=== PATIENT | female | born 1950 | race Caucasian/White ===

== ENCOUNTER → 2017-07-07 | Outpatient (CLI) | payer BC ==
[~2017-07-07] MED LIST: ACET-1311 PO; ATOR-22 PO; CLX20 PO; CMD5 PO; DOCU-94 PO; FURO-85 PO; LISI-461 PO; MULT-506 PO; XNX25 PO
--- NOTE | 2017-07-08 19:50 | SPLIT NIGHT TECHNICIAN REPORT ---
[facility] Split Night Polysomnogram - Digital Manager Report Study date: 07/07/2017 Referring Physician: Keith Austin Name: THANH FELIZ Digital Manager: Tierney Gupta, PSGT. Date of : 1950 Height: 66 years, Height 5' 5" Sex: Female Weight: 231 lbs Age: 66 BMI: Medications: 38.44 Prednisone 20 mg, Lisinopril 10 mg, Celexa 40 mg, Lasix 20 mg, Tylenol 650 mg, Aspirin 81 mg, Lipitor 20 mg. Patient History 69 yr. old female presents to the sleep lab for sob and fatigue. She states that she uses 2 liters of oxygen at night and two hours prior to starting her job in the morning. Her medical history is as follows: Pulmonary Hypertension, Amiodarone Pulmonary Toxicity, Nocturnal Hypoxia, Chronic Respiratory Failure with Hypoxia, SOB. Aortic Valve Replacement with Cabg with Prosthetic Valve. Test will be started on room air. Parameters Monitored NPSG: E1-M2, E2-M1, Fp1-M2, Fp2-M1, F3-M2, F4-M2, F4-M1, C3-M2, C4-M2, C4-M1, O1-M2, O2-M2, O2-M1, T3-M2, T4-M1, P3-M2, P4-M1, CHIN1, CHIN2, HR, EKG, Legs, PFLOW, SNOR, FLOW, CFLOW, Tidal Volume, THOR, ABDO, SpO2, PLTH, CPRESS, ETCO2 Wave, ETCO2, pH SLEEP SUMMARY DATA DIAGNOSTIC TREATMENT Lights Out: 11:02:05 PM NONE Lights On: 2:04:05 AM 5:41:05 AM Total Recording Time (TRT): 181.7 min. 209.3 min. Total Sleep Time (TST): 146.5 min. 173.0 min. NREM Time: 146.5 min. 80.5 min. REM Time: 0.0 min. 92.5 min. Sleep Period Time (SPT): 149.0 min. 178.5 min. Sleep Efficiency (SE): 81 % 83 % Sleep Latency: 27.5 min. NONE min. Arousal Index: 33.6 10.8 PAP Treatment Levels: 4, 6, 7, 8, 9 * Optimal Pressure(s) SLEEP STAGING DATA DIAGNOSTIC TREATMENT Duration (min) TST % Duration (min) TST % Stage Wake: 35.2 min. -- 35.8 min. -- WASO: 8.0 min. -- 5.5 min. -- NREM: 146.5 min. 100 % 80.5 min. 47 % Stage N1: 16.0 min. 11 % 9.0 min. 5 % Stage N2: 130.5 min. 89 % 65.0 min. 38 % Stage N3: 0.0 min. 0 % 6.5 min. 4 % REM: 0.0 min. 0 % 92.5 min. 53 % POSITIONAL DATA Event Count Index Event Count Index Supine: N/A N/A N/A N/A Supine NREM: N/A N/A N/A N/A Supine REM: N/A N/A N/A N/A Non-Supine: 161 65.5 22 7.6 Non-Supine NREM: 161 65.5 2 1.5 Non-Supine REM: N/A N/A 20 13.0 AROUSAL SUMMARY DATA: Event Count Index Event Count Index Apnea Arousals: 2 4.9 0 0.3 Hypopnea Arousals: 31 12.7 5 1.7 Snore Arousals: 33 13.5 7 2.4 PLM Arousals: 0 0.0 0 0.0 Non-Specific Arousals: 18 7.4 17 5.9 Total Arousals: 82 33.6 31 10.8 MYOCLONUS (PLM) Event Count Index Event Count Index PLM: 0 0.0 0 0.0 PLM AROUSAL: 0 0.0 0 0.0 PLM W/O AROUSAL 0 0.0 0 0.0 PLM W/RESP EVENT 0 0.0 0 0.0 MYOCLONUS (PLM) Event Count Index Event Count Index LM: 1 10.2 21 7.3 LM AROUSAL: 1 0.4 2 0.7 LM W/O AROUSAL LM W/RESP EVENT LM NON SPECIFIC 19 7.8 18 6.2 HEART RATE DATA DIAGNOSTIC TREATMENT Sleep (bpm): 81 73 REM (bpm): N/A 89 NREM (bpm): 86 89 Tachycardia Count: 0 0 Tachycardia Duration: 0.00 0 Bradycardia Count: 0 0 Bradycardia Duration: 0.00 0 DIAGNOSTIC PORTION TREATMENT PORTION RESPIRATORY DATA Event Count Index Event Count Index AHI: -- 65.5 -- 7.6 RDI: -- 65.9 -- 8 Obstructive Apnea: 12 4.9 1 0.3 Central Apnea: 0 0.0 0 0.0 Mixed Apnea: 0 0.0 0 0.0 Hypopnea: 148 60.6 21 7.3 RERA: 1 0.4 0 0.0 Total Apneas: 12 4.9 1 0.3 RESPIRATORY DATA REM NREM SLEEP REM NREM SLEEP Supine Position: Obstructive Apneas: N/A N/A N/A N/A N/A N/A Central Apneas: N/A N/A N/A N/A N/A N/A Mixed Apneas: N/A N/A N/A N/A N/A N/A Hypopneas: N/A N/A N/A N/A N/A N/A RERA N/A N/A N/A N/A N/A N/A Total Supine Events: N/A N/A N/A N/A N/A N/A Supine AHI: N/A N/A N/A N/A N/A N/A Supine RDI: N/A N/A N/A N/A N/A N/A REM NREM SLEEP REM NREM SLEEP Non-Supine Position: Obstructive Apneas: N/A 12 12 0 1 1 Central Apneas: N/A 0 0 0 0 0 Mixed Apneas: N/A 0 0 0 0 0 Hypopneas: N/A 148 148 20 1 21 RERA N/A 1 1 0 0 0 Total Supine Events: N/A 161 161 20 2 22 Supine AHI: N/A 65.5 65.5 13.0 1.5 7.6 Supine RDI: N/A 65.9 65.9 13.0 1.5 7.6 OXYGEN DESTAURATION DATA: Event Count Index Event Count Index REM Desaturations: N/A N/A 28 18.2 NREM Desaturations: 175 71.7 6 4.5 SNORE DATA DIAGNOSTIC TREATMENT Snore Time: 38.2 2:42:35 AM Snore TST%: 16 13 Snore Arousal Count: 33 7 Snore Arousal Index: 13.5 2.4 Desaturation Event Summary: Minimum %SpO2 Event Count Mean/Min/Max Duration(sec.) Desaturation Index % Time In Bed > 90 69 28.5 / 11.3 / 59.3 123.1 8.7 86 - 90 193 23.4 / 7.5 / 56.0 42.6 70.2 81 - 85 20 20.9 / 7.5 / 41.8 16.6 18.7 76 - 80 0 N/A 0.0 2.5 71 - 75 0 N/A 0.0 0.0 66 - 70 0 N/A 0.0 0.0 61 - 65 0 N/A 0.0 0.0 56 - 60 0 N/A 0.0 0.0 51 - 55 0 N/A 0.0 0.0 < 50 0 N/A 0.0 0.0 OXYGEN SATURATION DATA DIAGNOSTIC TREATMENT SpO2 Mean Sleep: 86 % 89 % SpO2 Mean REM: N/A % 89 % SpO2 Mean NREM: 86 % 89 % SpO2 Minimum Sleep: 76 % 81 % SpO2 Minimum REM: N/A % 81 % SpO2 Minimum NREM: 76 % 83 % Time Below 90% (TST): 130.3 121.5 Time Below 88% (TST): 103.5 20.7 Total REM NREM Awake <50% 0.0 min. 0.0 min. 0.0 min. 0.0 min. 51 - 60% 0.0 min. 0.0 min. 0.0 min. 0.0 min. 61 - 70% 0.0 min. 0.0 min. 0.0 min. 0.0 min. 71 - 80% 9.5 min. 0.0 min. 9.4 min. 0.2 min. 81 - 90% 344.0 min. 70.6 min. 209.4 min. 64.0 min. 91 - 100% 33.6 min. 21.8 min. 7.9 min. 3.9 min. Average 87 89 87 88 Minimum SpO2 76 81 76 79 Desaturation Event Index 32.1 18.2 47.8 0.0 # Desat. Events below 89% 207 26 181 0 Time(%) with Saturation below 89% 59.4 6.7 40.3 12.4 Time(min.) with Saturation below 89% 230.0 25.9 156.0 48.1 Recording Digital Manager Comments: Split -Night: MS. Feliz slept in the right, left, and supine positions. No cardiac arrhythmia or PLM's noted. No bruxism noted. Snoring was noted and scored as a 3 on a scale of 1 through 5. (0=no snoring, 5=snoring loud enough to be heard through a closed door or down the [address] way) At 2:03 am, MS. Feliz has met specific Split-Night criteria during the diagnostic portion of this study. CPAP was initiated at +4 CMH2O and up-titrated to an optimal level of +9 CMH2O, which nearly eliminated all respiratory events and snoring. A medium res Med Air Fit F10, was used during titration Ms. Feliz awoke to use the restroom one time during the night. Ms. Feliz stated, I did sleep better here, I could breathe better here and it was peaceful. The final report will be interpreted and signed by a sleep physician. The completed physician report will then be placed in the patient medical record. This study was done on room air only. Therapy Event: Therapy (cm H20) 0 4 6 7 8 9 Total Time at Pressure (min.) 181.7 40.4 41.8 17.8 31.1 77.6 TST at Pressure (min.) 146.5 9.1 41.8 17.8 31.1 73.1 # Periods 1 1 1 1 1 1 Sleep Onset (min.) 27.5 30.3 0.0 0.0 0.0 0.0 REM Onset (min.) N/A N/A N/A 10.1 0.0 0.0 Sleep Efficiency % 80 22 100 100 100 94 Wakefulness (%) 19.4 77.4 0.0 0.0 0.0 5.8 Wakefulness (min.) 35.2 31.3 0.0 0.0 0.0 4.5 NREM 1 (%) 8.8 14.8 0.0 0.0 0.0 3.9 NREM 1 (min.) 16.0 6.0 0.0 0.0 0.0 3.0 NREM 2 (%) 71.8 7.8 100.0 20.2 0.0 21.3 NREM 2 (min.) 130.5 3.1 41.8 3.6 0.0 16.5 NREM 3 (%) 0.0 0.0 0.0 36.4 0.0 0.0 NREM 3 (min.) 0.0 0.0 0.0 6.5 0.0 0.0 REM (%) 0.0 0.0 0.0 43.4 100.0 69.1 REM (min.) 0.0 0.0 0.0 7.7 31.1 53.6 # Arousals 82 3 0 6 7 15 Arousal Index 33.6 19.7 0.0 20.2 13.5 12.3 # Snore 1,355 34 457 49 176 71 Snore Index 554.9 223.2 656.6 164.7 339.3 58.3 AHI 65.5 0.0 0.0 37.0 19.3 0.8 AHI Supine N/A N/A N/A N/A N/A N/A AHI Non-Supine 65.5 0.0 0.0 37.0 19.3 0.8 NREM AHI 65.5 0.0 0.0 11.9 N/A 0.0 REM AHI N/A N/A N/A 69.7 19.3 1.1 RDI 65.9 0.0 0.0 37.0 19.3 0.8 # Obstructive 12 0 0 1 0 0 # Central Ap 0 0 0 0 0 0 # Mixed 0 0 0 0 0 0 # Hypopneas 148 0 0 10 10 1 RERAS 1 0 0 0 0 0 Total Respiratory Events 161 0 0 11 10 1 Time Below SpO2 89.00% (min.) 118.0 7.8 23.6 7.6 7.9 17.1 Mean NREM SpO2 (%) 86 88 88 88 N/A 89 Mean REM SpO2 (%) N/A N/A N/A 88 90 89 Mean Sleep SpO2 (%) 86 88 88 88 90 89 Min NREM SpO2 (%) 76 84 84 83 N/A 85 Min REM SpO2 (%) N/A N/A N/A 81 82 82 Position Supine (min.) 0.0 0.0 0.0 0.0 0.0 0.0 Position Non-supine (min.) 146.5 9.1 41.8 17.8 31.1 73.1 LM Index Sleep 10.2 0.0 0.0 10.1 5.8 12.3 LM Index NREM 10.2 0.0 0.0 5.9 N/A 0.0 LM Index REM N/A N/A N/A 15.5 5.8 16.8 Mean Heart Rate (bpm) 81 74 71 74 71 75 Min Heart Rate (bpm) 71 69 68 61 61 56
--- NOTE | 2017-07-13 20:32 | Sleep Study ---
Sleep Study Report Date of Service: 07/07/2017 Sleep Study Report Clinical data: The patient is a 66-year-old female who was referred by Dr. Keith Austin. She has symptoms of shortness of breath and fatigue. She has a history of nocturnal hypoxia and wears 2 liters of oxygen at night. She has pulmonary hypertension. Sleep apnea is to be excluded. This was an in-lab split night sleep study. Sleep architecture: The study was divided into a diagnostic and therapeutic portion. She was treated with nasal CPAP during the therapeutic portion of the study. During the diagnostic portion of the study the sleep period time was 149.0 minutes. The total sleep time was 146.5 minutes. The sleep latency was prolonged to 27.5 minutes. The sleep efficiency was reduced to 81 percent. Sleep consisted of stage N1 11 percent, stage N2 89 percent, stage N3 0 percent, stage REM 0 percent. During the therapeutic portion of the study when the patient was treated with nasal CPAP therapy the sleep period time was 178.5 minutes. The total sleep time was 173.0 minutes. The sleep efficiency was 83 percent. Sleep consisted of stage N1 5 percent, stage N2 38 percent, stage N3 4 percent, stage REM 53 percent. Arousal data: During the diagnostic portion of the study the patient had 82 arousals including 2 apnea arousals, 31 hypopnea arousals, 33 snoring arousals, and 18 nonspecific arousals. The arousal index was 33.6. During the therapeutic portion of the study the patient had a total of 31 arousals including 5 hypopnea arousals, 7 snoring arousals, and 17 nonspecific arousals. The arousal index was 10.8. PLM data: During the diagnostic portion of the study the patient had 0 periodic limb movements. During the therapeutic portion of the study she had 0 periodic limb movements. EKG: The underlying cardiac rhythm was normal sinus. There were rare extrasystoles. The cardiac rates ranged from 73 to 89 beats per minute. Respiratory data: During the diagnostic portion of the study the patient had a total of 160 respiratory events including 12 obstructive apneas and 148 hypopneas. Hypopneas were scored according to the 4 percent desaturation rule. The apnea- hypopnea index was severely elevated at 65.5 events per hour. This represents severe sleep apnea. During the therapeutic portion of the study the patient was treated with nasal CPAP which was titrated to a final pressure of 9 centimeters. She had a total of 22 respiratory events including 1 obstructive apnea and 21 hypopneas. The apnea-hypopnea index was 7.6. At the final pressure of 9 centimeters the patient had an apnea-hypopnea index of 0.8. She did spend 77.6 minutes at the final pressure. Oximetry data: During the diagnostic portion of the study the mean saturation was 86 percent. The minimum saturation was 76 percent. She had a total of 103.5 minutes with saturations less than 88 percent. During the therapeutic portion of the study the mean saturation was 89 percent. The minimum saturation was 81 percent. There was a total of 20.7 minutes with saturations less than 88 percent. The study was done on room air. [employer] comments: The patient slept on the right, left, and supine positions. No cardiac arrhythmia or PLMS noted. No bruxism noted. Snoring was noted and scored as a 3 on a scale of 1 through 5. At 2:03 a.m. the patient met specific split night criteria during the diagnostic portion of this study. CPAP was initiated at 4 centimeters and up titrated to an optimal level of 9 centimeters which nearly eliminated all respiratory events and snoring. A medium ResMed air fit F10 mask was used. Following the study the patient stated, " I did sleep better here, I could breathe better here and it was peaceful". Impressions: 1. Obstructive sleep apnea-severe - resolved with nasal CPAP at 9 centimeters Comments: The patient had a split night study done because she was found to have severe obstructive sleep apnea. As noted her apnea-hypopnea index was 65.5. When she was treated with CPAP there was near resolution of her sleep apnea. Her oxygenation improved with CPAP treatment. However she still has some decrease in oxygenation. The patient normally wears nasal cannula oxygen at night. She does have pulmonary hypertension. It would be advised that 2 liters of oxygen be instilled into her CPAP. During the therapeutic portion of the study her sleep became much more consolidated. The patient slept better than normal as noted above. Recommendations: 1. It is advised that the patient be started on nasal CPAP at 9 centimeters. It is advised that O2 2L be instilled into her CPAP. 2. It is suggested that she be ordered a medium-sized ResMed med air fit F10 mask. 3. The patient has an elevation of body mass index at 38.44. A weight reduction program is advised. 4. If possible the patient should avoid sleeping in the supine position. Typically there is more respiratory events while supine. 5. The patient should be seen back in follow-up between day 31 day 90 after she receives her CPAP device. Copies To 1: Hans Dorsey DO; Keith Austin M.D.
== END | disposition home or self-care (01) ==
LOC: C.NEUR 20:00
PROVIDERS: ATTEND Internal Medicine
DX: G47.33 Obstructive sleep apnea (adult) (pediatric) (principal)

== ENCOUNTER → 2017-08-31 | Outpatient (CLI) | payer BC ==
--- NOTE | 2017-09-01 15:37 | MAMMOGRAPHY REPORT ---
BILATERAL DIGITAL SCREENING MAMMOGRAM TOMOSYNTHESIS WITH CAD: 08/31/2017 CLINICAL HISTORY: Routine screening. Patient has no complaints. TECHNIQUE: Breast tomosynthesis in addition to standard 2D mammography was performed. Current study was also evaluated with a Computer Aided Detection (CAD) system. COMPARISON: Comparison is made to exams dated: 08/25/2016 mammogram, 08/05/2015 mammogram, 06/09/2014 mammogram, 06/13/2013 mammogram, 06/12/2012 mammogram, and 06/08/2011 mammogram - [facility]. BREAST COMPOSITION: There are scattered areas of fibroglandular density in both breasts. FINDINGS: No suspicious masses, calcifications, or areas of architectural distortion are noted in ei ther breast. There has been no significant interval change compared to prior exams. Scattered bilate ral benign-appearing calcifications are again noted. There is mild architectural distortion seen wit hin the left upper outer quadrant, which appears stable on 2-D views dating back to at least the 2008 and 2007 exams, and is therefore likely benign given the long-term stability and may be due to prior surgery. IMPRESSION: ACR BI-RADS CATEGORY 2: BENIGN There is no mammographic evidence of malignancy. A 1 year screening mammogram is recommended. The pa tient will receive written notification of the results. Approximately 10% of breast cancers are not detected with mammography. A negative mammographic report should not delay biopsy if a clinically suggestive mass is present. Donna Chen M.D. ah/:08/31/2017 16:10:08 Certified Novell Engineer: Deyanira LANDRY(Gino)(Ervin)(BD), [facility] letter sent: Normal 1/2 BI-RADS Code: ACR BI-RADS Category 2: Benign
== END | disposition home or self-care (01) ==
LOC: C.MAMM 15:45
PROVIDERS: ATTEND Internal Medicine
DX: Z12.31 Encounter for screening mammogram for malignant neoplasm of breast (principal)

== ENCOUNTER → 2017-12-19 | Outpatient (CLI) | payer BC ==
--- NOTE | 2017-12-20 15:26 | ECHOCARDIOGRAM REPORT ---
*NOTICE TO RECEIVING LIBERTARIAN AGENCY This information is strictly Confidential and protected under [place] law. [place] law prohibits you from making any further disclosure of this information unless further disclosure is expressly permitted by the written consent of the person to whom it pertains or is authorized by law. A general authorization for the release of medical or other information is not sufficient for this purpose. Hospital accepts no responsibility if the information is made available to any other person, INCLUDING THE PATIENT. Interpretation Summary * Name: THANH BLANCO Study Date: 12/19/2017 03:14 PM BP: 138/86 mmHg * Patient Location: [facility] HR: 76 * : 1950 (M/d/yyyy) Gender: Female Height: 66 in * Age: 67 yrs Ethnicity: CA Weight: 225 lb * Ordering Physician: Wero Abraham * Referring Physician: Keith Austin * Performed By: Bernice Giraldo RCS * * Reason For Study: SOB * BSA: 2.1 m2 * -- Conclusions -- * This is a technically limited study. * The left ventricle is normal in size. * The basal septum is thickened and angulated consistent with sigmoid septum. * Left ventricular systolic function is moderately reduced. * Ejection Fraction = 30-35%. * The right ventricular systolic function is normal. * The left atrium is mildly dilated. * Right atrial size is normal. * Grossly normal valves. Procedure Details * A complete two-dimensional transthoracic echocardiogram was performed (2D, M-mode, Doppler and color flow Doppler). * The study was technically difficult. * A contrast injection of Definity was performed to improve assessment of LV function. * Contrast was injected into an intravenous site in the right arm. * One vial of Definity ultrasound contrast was diluted in normal saline to a total volume of 10 ml. A total of '1' ml of solution was administered during imaging. * Lot # [id number] of Definity utilized for procedure. * Expiration date . * The attending nurse who injected the contrast agent was Zi Damon RN. Left Ventricle * The left ventricle is normal in size. * The basal septum is thickened and angulated consistent with sigmoid septum. * Ejection Fraction = 30-35%. * Left ventricular systolic function is moderately reduced. Right Ventricle * The right ventricle is grossly normal size. * The right ventricular systolic function is normal. Atria * The left atrium is mildly dilated. * Right atrial size is normal. * The interatrial septum is intact with no evidence for an atrial septal defect. Mitral Valve * There is mild mitral annular calcification. * The mitral valve is grossly normal. * There is trace mitral regurgitation. Tricuspid Valve * The tricuspid valve is not well visualized. * Significant tricuspid regurgitation is absent. Aortic Valve * The aortic valve is not well visualized. * No hemodynamically significant valvular aortic stenosis. * There is no significant aortic regurgitation. Pulmonic Valve * The pulmonic valve is not well seen, but is grossly normal. * Trace pulmonic valvular regurgitation. Great Vessels * The aortic root and descending aorta are of normal size however, there is evidence of atherosclerotic vascular disease. MMode 2D Measurements and Calculations IVSd 1.3 cm IVSs 1.5 cm LVIDd 4.8 cm LVIDs 4.1 cm LVPWd 1.2 cm LVPWs 1.7 cm IVS/LVPW 1.0 FS 15.3 % EDV(Teich) 109.6 ml ESV(Teich) 74.3 ml EF(Teich) 32.2 % EDV(cubed) 113.3 ml ESV(cubed) 69.0 ml EF(cubed) 39.1 % % IVS thick 20.1 % % LVPW thick 35.2 % LV mass(C)d 237.3 grams LV mass(C)dI 112.8 grams/m\S\2 LV mass(C)s 267.9 grams LV mass(C)sI 127.4 grams/m\S\2 SV(Teich) 35.3 ml SI(Teich) 16.8 ml/m\S\2 SV(cubed) 44.4 ml SI(cubed) 21.1 ml/m\S\2 Ao root diam 3.4 cm Ao root area 9.0 cm\S\2 LA dimension 4.8 cm asc Aorta Diam 3.4 cm LA/Ao 1.4 LVAd ap4 42.8 cm\S\2 LVLd ap4 8.9 cm EDV(MOD-sp4) 169.9 ml EDV(sp4-el) 175.0 ml LVAs ap4 32.2 cm\S\2 LVLs ap4 8.0 cm ESV(MOD-sp4) 108.7 ml ESV(sp4-el) 109.8 ml EF(MOD-sp4) 36.0 % EF(sp4-el) 37.3 % LVAd ap2 37.8 cm\S\2 LVLd ap2 8.9 cm EDV(MOD-sp2) 132.6 ml EDV(sp2-el) 135.8 ml LVAs ap2 30.2 cm\S\2 LVLs ap2 8.4 cm ESV(MOD-sp2) 88.4 ml ESV(sp2-el) 91.8 ml EF(MOD-sp2) 33.3 % EF(sp2-el) 32.4 % LVLd %diff 0.53 % EDV(MOD-bp) 151.4 ml LVLs %diff 4.6 % ESV(MOD-bp) 99.2 ml EF(MOD-bp) 34.5 % SV(MOD-sp4) 61.1 ml SI(MOD-sp4) 29.1 ml/m\S\2 SV(MOD-sp2) 44.2 ml SI(MOD-sp2) 21.0 ml/m\S\2 SV(MOD-bp) 52.2 ml SI(MOD-bp) 24.8 ml/m\S\2 SV(sp4-el) 65.2 ml SI(sp4-el) 31.0 ml/m\S\2 SV(sp2-el) 43.9 ml SI(sp2-el) 20.9 ml/m\S\2 Doppler Measurements and Calculations Ao V2 max 203.6 cm/sec Ao max PG 16.6 mmHg Ao max PG (full) 5.6 mmHg LV V1 max PG 11.0 mmHg LV V1 max 166.0 cm/sec PA V2 max 90.5 cm/sec PA max PG 3.3 mmHg TR max irma 241.4 cm/sec
== END | disposition home or self-care (01) ==
LOC: C.CPL 15:00
PROVIDERS: ATTEND Internal Medicine
DX: I10 Essential (primary) hypertension (principal); I49.9 Cardiac arrhythmia, unspecified